=== PATIENT | female | born 1960 | race Caucasian/White ===

== ENCOUNTER 2019-02-09 12:30 | Day surgery (SDC) | payer OTHER ==
[~2019-02-09] VITALS: Ht 157.5 cm; Wt 74.4 kg
[2019-02-09 13:01] VITALS: BP 112/60; PULSE 66; RESP 27
[2019-02-09 13:38] VITALS: Ht 157.5 cm; Wt 74.4 kg
[2019-02-09] MEDS ORDERED: LIDOCAINE 4% SOLUTION 50 ML BTL ONE (13:59)
[2019-02-09] MEDS ORDERED: no medication (14:37)
[2019-02-09] MEDS ORDERED: FENTAnyl 50 MCG/ML VIAL ONE (14:41)
[2019-02-09] MEDS ORDERED: MIDAZOLAM 1 MG/ML 2 ML INJ ONE ×3 (14:41→14:42)
[2019-02-09 14:55] VITALS: BP 120/67; PULSE 78; RESP 18
== END 2019-02-09 15:12 | disposition home or self-care (01) ==
LOC: GIL 12:30
PROVIDERS: ATTEND Internal Medicine
DX: R19.4 Change in bowel habit (principal); K29.80 Duodenitis without bleeding; K57.30 Diverticulosis of large intestine without perforation or abscess without bleeding
CPT/HCPCS: 43239; 45378; 88305; J2250; J3010; Z7610